=== PATIENT | female | born 1960 | race Caucasian/White ===

== ENCOUNTER 2017-02-18 11:25 | Inpatient (IN) | payer OTHER ==
[~2017-02-18] VITALS: Ht 152.4 cm; Wt 47.3 kg
--- NOTE | ~2017-02-18 | PR ---
[place], [place] PROGRESS NOTE NAME: JEFFERSON BARNETT UNIT #: [id number] ROOM: 503 DOCTOR: GILBERTO RUIZ MD BIRTHDATE: [birth year] DOS: 02/26/2017 PULMONARY PROGRESS NOTE SUBJECTIVE: The patient continued to show improvement in the respiratory symptoms with reduction of chest congestion, coughing, and shortness of breath. She has been ambulating in her room and denies any shortness of breath without any chest pain. OBJECTIVE: VITAL SIGNS: For the patient which was recorded show normal temperature, respiratory rate 20, heart rate 86, blood pressure 151/75. Pulse oxygen saturation on room air was 94% saturation recorded. HEENT: Examination shows no new change. NECK: Supple. CARDIOVASCULAR: S1, S2 audible. LUNGS: Noted without any wheezing or crackles at the present time. ABDOMEN: Soft, nontender. LABORATORY DATA: Urine for Legionella antigen and Strep antigen both noted as negative. CBC this morning, WBC count 12.2, hemoglobin and hematocrit normal, platelet count mildly elevated to 433,000. The CMP of the patient noted normal BUN and creatinine. Other electrolytes were noted grossly normal. IMPRESSION: 1. The patient who has been currently noted with acute hypoxic respiratory failure, which has been improving and resolving progressively. 2. Improving acute pneumonia with superimposed area of atelectasis of the lungs for the patient after bronchoscopy, the bronchial washing culture noted negative for any abnormal bacterial isolation. PLAN OF TREATMENT: The patient was encouraged to continue to ambulate. All other previous treatment to be continued as planned. Possible consideration for home discharge for the patient if assessed the same by the primary care physician. [place], [place] PROGRESS NOTE NAME: JEFFERSON BARNETT UNIT #: [id number] ROOM: 503 DOCTOR: GILBERTO RUIZ MD BIRTHDATE: [birth year] GILBERTO LANCASTER MD CM:PNTRANS [id number] GILBERTO ABRAMS MD 02/27/17 0713 interface
--- NOTE | ~2017-02-18 | ST ---
[place], [place] EXERCISE STRESS TEST REPORT NAME: JEFFERSON BARNETT LOCATED WITHIN [facility] #: [id number] UNIT #: [id number] ROOM: [facility] DOCTOR: SISSY VIDALES MD BIRTHDATE: [birth year] DOS: 02/23/2017 REFERRING PHYSICIAN: Dr. Hairston. INDICATION: Cardiomyopathy. DESCRIPTION: The patient underwent standard protocol Lexiscan stress EKG. Baseline EKG shows sinus tachycardia at a rate of 115 beats per minute with blood pressure at the baseline was 130/78. The patient's peak heart rate was 132, with a blood pressure of 122/64. The patient denied chest pain. The patient had no ischemic changes. The patient had no arrhythmias. SUMMARY OF FINDINGS: Unremarkable Lexiscan stress EKG. Please see separate report for perfusion scan results. SISSY VIDALES MD CM:STRESS:EXERCISE STRESS TEST REPORT [id number] SISSY VIDALES MD
--- NOTE | ~2017-02-18 | PR ---
[place], [place] PROGRESS NOTE [id number] UNIT #: [id number] ROOM: [facility] DOCTOR: KLEBER HERNANDEZ MD BIRTHDATE: [birth year] DOS: 02/25/2017 SUBJECTIVE: The patient is sitting up in chair. Denied any cardiac complaint. Reporting significant improvement in her shortness of breath. No chest pain. No symptomatic palpitation. No dizziness, no lightheadedness. OBJECTIVE: VITAL SIGNS: Blood pressure 135/67, heart rate 96, respiratory rate of 14. HEENT: Extraocular muscles intact. Pupils equal, round, reactive to light. NECK: Good upstroke, no bruit. HEART: S1, S2 with holosystolic murmur at left sternal border. LUNGS: Clear to auscultation. EXTREMITIES: Lower extremities, no significant edema. LABORATORY DATA: White count 13.1, hemoglobin 11.8. Potassium 4.8. GFR more than 60%. Albumin 2.9. ASSESSMENT AND PLAN: History of severe nonischemic cardiomyopathy, patient continued to be tachycardic with slightly elevated high blood pressure for that I will increase her Toprol to 50 mg 1 tablet p.o. b.i.d. We will continue with digoxin 0.25 mg once a day. As noted in my previous notes. We will arrange for the VEST prior to her discharge. The patient can be considered for discharge home in a.m. Increase activity with possible physical therapy. Follow up with Dr. Patel as an outpatient within 1-2 weeks. KLEBER HERNANDEZ MD CM:PNTRANS [id number] KLEBER HERNANDEZ MD 02/25/17 1431 interface
--- NOTE | ~2017-02-18 | PR ---
[place], [place] PROGRESS NOTE NAME: JEFFERSON BARNETT [facility] #: [id number] UNIT #: [id number] ROOM: [facility] DOCTOR: KLEBER HERNANDEZ MD BIRTHDATE: [birth year] DOS: 02/24/2017 SUBJECTIVE: The patient is sitting up in a chair and ____, appears to be doing well. She is reporting significant improvement in her symptoms. No current chest pain, chest pressure, heaviness, or tightness. No symptomatic palpitations. Occasional dizziness. OBJECTIVE: VITAL SIGNS: Blood pressure ____, heart rate 103, ____ of 97.4, respirations 20. NECK: Good upstroke, no bruit. HEART: S1, S2 with holosystolic murmur in the left upper sternal border. LUNGS: Decreased air movement, but no caroline wheezing or rales. ABDOMEN: Soft, nontender, present bowel sounds. LOWER EXTREMITIES: There is no significant edema ____. LABORATORY DATA: White count is currently 8.5, hemoglobin 10.5. Sed rate is 66. Potassium 3.8, glucose 124, ALT 47, AST is 93, albumin 2.7. ASSESSMENT AND PLAN: Initial presentation with shortness of breath with evidence of volume overload and subsequent echocardiogram confirmed severe LV dysfunction. The patient underwent stress test, which confirmed this and confirmed the nonischemic nature of this presentation. Currently, the patient is reporting significant improvement in her symptoms. My concern is her relative tachycardia, which could be due to possible dehydration. For that, I will hold Lasix for today. Digoxin 0.5 mg will be given today and initiated tomorrow at 0.25 mg. I will consider titrating ____ in the a.m. Future plans for a VEST most likely prior to discharge. Increase activity and prepare to get the patient out of the intensive care unit to a monitor bed. KLEBER HERNANDEZ MD CM:PNTRANS [id number] KLEBER HERNANDEZ MD 02/25/17 0204 interface
--- NOTE | ~2017-02-18 | PR ---
[place], [place] PROGRESS NOTE NAME: JEFFERSON BARNETT UNIT #: [id number] ROOM: [facility] DOCTOR: GILBERTO RUIZ MD BIRTHDATE: [birth year] DOS: 02/24/2017 PULMONARY PROGRESS NOTE SUBJECTIVE: She has been doing remarkably well from this patient's pulmonary standpoint. The patient denies symptoms of chest pain. Her medications for the patient has been adjusted for this patient for the cardiomyopathy. Stress test was completed yesterday of the patient on 02/23/2017, and was described unremarkable electrocardiographic portion of the stress test. The nuclear medicine scan for this patient described with left ventricular ejection fraction was noted at 50%, which previous echocardiogram was described as 20%. Probably normal perfusion with fixed anterolateral defects of the patient was described because of breast attenuation. The chest x-ray of the patient that was done 2-view this morning for the patient was reviewed for the patient shows continued improvement for the patient in infiltration of the lung was noted with reexpansion of the lung. IMPRESSION: 1. The patient with status post bronchoscopy of the patient removal of the large plugs and mucus impaction in the major airways of the patient with current lymphadenopathy. 2. Left ventricular ejection fraction was actually noted with 50% with the nuclear medicine scan, which would be considered more accurate for this patient than the echocardiogram. 3. Central bronchiectasis as well. 4. Acute hypoxic respiratory failure, resolving. PLAN OF TREATMENT: Discontinuation of the Smith catheter for this patient at this time. Ambulation as tolerated for the patient to telemetry floor. Culture results of the bronchial washing noted negative. Culture monitor chest x-ray closely. Upon discharge of the patient, further assessment of lymphadenopathy and others to be continued. Continue monitoring workup of bronchiectasis as well and other pulmonary infiltration assessment, which has been ordered with the lab testing. [place], [place] PROGRESS NOTE NAME: JEFFERSON BARNETT UNIT #: [id number] ROOM: [facility] DOCTOR: GILBERTO RUIZ MD BIRTHDATE: [birth year] GILBERTO LANCASTER MD CM:PNTRANS [id number] GILBERTO ABRAMS MD 02/25/17 1142 interface
--- NOTE | ~2017-02-18 | PR ---
[place], [place] PROGRESS NOTE NAME: JEFFERSON BARNETT [facility] #: [id number] UNIT #: [id number] ROOM: 503 DOCTOR: MELO BOGGS MD BIRTHDATE: [birth year] DOS: 02/26/2017 CARDIOLOGY PROGRESS NOTE SUBJECTIVE: The patient was seen at her bedside today, 02/26/2017 for a followup of her newly documented cardiomyopathy. She is a 56-year-old woman who presented to the hospital 02/18/2017 with chest pain, fevers and a productive cough. An echocardiogram read by Dr. Patel on 02/22/2017 showed that the left ventricle was normal in size, but globally hypokinetic with normal wall thickness. Ejection fraction was 20% and there was Doppler evidence for stage 3 diastolic dysfunction. The mitral valve showed moderate mitral insufficiency. The tricuspid valve was normal with trivial tricuspid insufficiency. At least moderate aortic insufficiency was also present. The patient did undergo a pharmacologic stress test on 02/23/2017 which showed an anterior perfusion defect that was felt to be due to soft tissue attenuation. There was no evidence for inducible or reversible ischemia. The patient was felt to have a dilated nonischemic cardiomyopathy and was placed on metoprolol, digoxin, spironolactone, and losartan as part of her guideline directed medical therapy. Currently, she is on 25 mg of losartan daily along with 50 mg of metoprolol twice a day. The patient feels well. She believes she has diuresed considerably. She is no longer swollen or dyspneic. She is anxious to go home. PHYSICAL EXAMINATION: GENERAL: She is a slender white female who is awake, alert and oriented. VITAL SIGNS: Pulse is 77 and regular, blood pressure is 155/52. She is afebrile. HEENT: Normocephalic, atraumatic. Extraocular muscles are intact. Sclerae are clear. Pupils are equal, round and react to light. The oral mucosa is moist. Tongue is midline. NECK: Supple. She has no jugular distention. Carotids are full without bruits. She has no neck or supraclavicular masses and no thyromegaly. LUNGS: Respirations are unlabored. Her chest is clear to auscultation and percussion. She has no presacral edema or chest wall tenderness. HEART: Has a regular rhythm. She has a fourth heart sound, but no third heart sound. The PMI is not displaced. She has no precordial heave, lift or thrill. ABDOMEN: Soft and normally active without masses, organomegaly or bruits. EXTREMITIES: Showed no edema. Peripheral pulses are easily palpated bilaterally. She presumably does have a dilated nonischemic cardiomyopathy and is being treated medically. Since her heart rate and blood pressure remain elevated, I will increase her metoprolol from 50 mg twice a day to 100 mg twice a day utilizing the succinate version. We will continue 25 mg of losartan for the present. I do not see any good indication for digoxin, so that will be stopped. She will continue her spironolactone as prescribed. We will plan on seeing her back in the office in a few weeks to continue to up titrate her medications. We are delaying her discharge until her LifeVest can be fitted and provided for discharge. We thank the hospitalist physicians for asking our advice regarding her care. [place], [place] PROGRESS NOTE NAME: AYE BARNETTAGUILAR Thomas [facility] [id number] UNIT #: [id number] ROOM: 503 DOCTOR: MELO BOGGS MD BIRTHDATE: [birth year] MELO BOGGS MD CM:PNTRANS [id number] MELO BOGGS MD 02/27/17215 interface
--- NOTE | ~2017-02-18 | PR ---
[place], [place] PROGRESS NOTE NAME: JEFFERSON BARNETT [facility] #: [id number] UNIT #: [id number] ROOM: [facility] DOCTOR: ANISHA ABRAMS MD,GILBERTO BIRTHDATE: [birth year] DOS: 02/23/2017 PULMONARY PROGRESS NOTE SUBJECTIVE: She had a bronchoscopy done yesterday with removal of large plugs of the mucus. She denies symptoms of chest pain, abdominal pain. She was planned for cardiac stress testing, which was ordered by the Cardiology Services to be done today. The echocardiogram for the patient noted with global hypokinesia with a left ventricular ejection fraction described as about 20% ejection fraction. The coughing has been noted certainly decreased. Shortness of breath was also noted improving. OBJECTIVE: VITAL SIGNS: For the patient, which have been recorded shows normal temperature, respiratory rate 20, heart rate of 113-120, blood pressure 143/83-144/82. Pulse oxygen saturation on 2 liters nasal cannula 97% saturation. HEENT: Examination shows head was atraumatic. Eyes nonicterus. NECK: Supple. CARDIOVASCULAR: S1, S2 audible. LUNGS: Without any wheeze or crackles at the present time. Breaths are noted decreased in the lower portion of the lungs. ABDOMEN: Soft, nontender. LABORATORY DATA: Echocardiogram for this patient was noted with moderate mitral valve regurgitation was noted. Left ventricular ejection fraction was described as 20% with global hypokinesia. Moderate aortic regurgitation for the patient was described as well. IMPRESSION: 1. The patient with valvular heart disease. The patient with aortic and mitral regurgitation, at least moderate severity with severe cardiomyopathy. The patient's left ventricular ejection fraction 20%. 2. The patient with status post bronchoscopy for removal of large plugs of the mucus of the patient with area of atelectasis. 3. Acute hypoxic respiratory failure as well. 4. Central bronchiectasis as well. 5. Lymphadenopathy in the mediastinum. PLAN OF TREATMENT: Continuation of the current plan and management as in progress. Monitor results of the bronchial washing of the patient to make any further changes in treatment accordingly. Preliminary culture of bronchial washings was noted as normal riky at this time. The Gram stain of the bronchial washings yesterday was noted as many white blood cells, few epithelial cells, rare gram-positive cocci in pairs. The ESR was noted at 66 as well. Improve the nutritional status for the patient as well. Usual care. All other supportive plan and management and plan of care. [place], [place] PROGRESS NOTE NAME: JEFFERSON BARNETT UNIT #: [id number] ROOM: [facility] DOCTOR: ANISHA ABRAMS MD,GILBERTO BIRTHDATE: [birth year] GILBERTO LANCASTER MD CM:BRIAN [id number] GILBERTO ABRAMS MD 02/24/17 0233 interface
--- NOTE | ~2017-02-18 | CON ---
[place], [place] REPORT OF CONSULTATION NAME: JEFFERSON BARNETT [facility] #: [id number] UNIT #: [id number] ROOM: [facility] DOCTOR: GILBERTO RUIZ MD BIRTHDATE: [birth year] DOS: 02/22/2017 PULMONARY CONSULTATION, EVALUATION, AND MANAGEMENT REQUESTING PHYSICIAN: The consultation was requested by the Hospitalist Services. HISTORY OF PRESENT ILLNESS: This is a 56-year-old white female, who has been admitted under the care of the Hospitalist Services for the patient on 02/18/2017. The patient presented to the Emergency Room from home as the patient reported symptoms of having increased coughing with chest congestion with intermittent sputum expectoration. She was also noted with symptoms of shortness of breath and also complains of chills. She does complain of symptoms of wheezing, which was noted to be severe at home. She has been admitted to the hospital for further medical management for this patient for possibility of acute pneumonia with sepsis for the patient in exacerbation of COPD. The patient developed significant severe respiratory distress yesterday for this patient with tachycardia and tachypnea. She had a CTA of the chest for this patient done that does not show evidence of pulmonary embolism, some other abnormalities were described on the CT scan of the chest. The patient denied symptoms of hemoptysis. Denied any ongoing acute chest pain. She has been made n.p.o. past midnight and bronchoscopy to be done today. REVIEW OF SYSTEMS: CONSTITUTIONAL SYMPTOMS: Fatigue and tiredness noted with chills without any fever from home. EYES: Denies any burning, redness, or tenderness. EARS, NOSE, AND THROAT SYMPTOMS: No sore throat, hoarseness, otalgia, postnasal drainage. CARDIOVASCULAR SYMPTOMS: Denies anginal pain, edema of the lower extremities, or palpitations. GASTROINTESTINAL SYMPTOMS: Denies dysphagia, nausea, vomiting, diarrhea, abdominal pain, hematemesis, melena, or hematochezia. SKIN: Denies lesions or rashes. GENITOURINARY SYMPTOMS: Denies dysuria, suprapubic pain, or hematuria. MUSCULOSKELETAL SYMPTOMS: Denies any acute joint pain, redness, or tenderness. CENTRAL NERVOUS SYSTEM: Denies dizziness, diplopia, syncopal episodes, or dizziness. Remaining systems were reviewed with the patient, they were noted all negative. PAST MEDICAL HISTORY: 1. This patient has not been diagnosed with COPD in the past. 2. History of chronic nicotine dependence up to 2 packs of cigarettes per day for several years. 3. History of seasonal allergies with allergic rhinitis. 4. Possible seizures. SOCIAL HISTORY: The patient stated that she is , has 1 daughter at home. Smoking was started as a teenager up to 2 packs of cigarettes per day with short-term tobacco cessation and resuming tobacco use again recently. Denies [place], [place] REPORT OF CONSULTATION NAME: JEFFERSON BARNETT UNIT #: [id number] ROOM: [facility] DOCTOR: ANISHA ABRAMS MD,GILBERTO BIRTHDATE: [birth year] any history of chronic alcohol dependence. Denies history of illicit drug use. Denies any occupational-related pulmonary exposure history. FAMILY HISTORY: The patient's father is , age unknown, from complication related to the heart problems. The mother also at age 6060 years old from complication related to coronary artery disease and with history of diabetes mellitus. HOME MEDICATIONS: Noted multivitamin for the patient and vitamin D. DRUG ALLERGIES: Noted allergies to: 1. IBUPROFEN. 2. PENICILLINS. PHYSICAL EXAMINATION: GENERAL: This is a 56-year-old female, who has been noted currently without any acute distress, appeared to be with somewhat muscle mass loss. VITAL SIGNS: The height for the patient recorded on admission was 5 feet, weight of 104 pounds, BMI of 20.3. The vital signs for the patient which have been recorded shows the temperature of the patient noted as normal for the patient since admission. Respiratory rate of the patient recorded as 18-14. Heart rate of 123 to 110 for the patient's sinus tachycardia. The blood pressure is 168/89 to 158/95. HEENT: Loss of muscles of mastication and temporal muscle wasting. NECK: Supple. CARDIOVASCULAR: S1, S2 audible. LUNGS: Noted with severely reduced breath sounds noted in the lungs bilaterally for the patient without any wheezing or crackles. ABDOMEN: Soft, nontender. EXTREMITIES: Show no edema, clubbing, or cyanosis. SKIN: For the patient does not show any lesions or rashes. MUSCULOSKELETAL: No deformities. CENTRAL NERVOUS SYSTEM: Cranial nerves 2 through 12 intact without any focal deficits. LABORATORY DATA: Lactic acid on admission was noted as 4.5, which was progressively reduced for the patient later on the same day on 02/18/2017, was noted as 2.8. The CBC of the patient on 02/18/2017 for this patient showed a WBC count of 16.5, hemoglobin 11.8, hematocrit 36.1, platelet count was noted as normal, 96% segments noted with differentials. The CMP of the patient on 02/18/2017 for this patient was noted with a creatinine of 1.1, BUN of 8. The liver function tests of the patient was noted with albumin of 2.7. Alkaline phosphatase mildly elevated at 279. The CBC of the patient that was done this morning shows hemoglobin of 10.5, hematocrit of 30.9, WBC count was normal. Platelet count was noted as normal at 314,000. CMP of the patient that was done this morning shows normal BUN and creatinine. PT and PTT for this patient that were done yesterday were noted as normal. Review of the radiology data for this patient, personal review was performed. The chest x-ray of the patient that was done for this patient was in 2006, shows [place], [place] REPORT OF CONSULTATION NAME: JEFFERSON BARNETT UNIT #: [id number] ROOM: [facility] DOCTOR[facility] [birth year] changes of COPD, hyperinflation. The chest x-ray of the patient that was done on 02/18/2017 for this patient shows some blunting of the left costophrenic angle with changes of COPD and emphysema were noted. CTA of the chest of the patient on 02/21/2017 for the patient was reviewed, shows central bronchiectasis. The patient was noted with volume loss in the patient's right middle lung for this patient as well as in the left lingula partially. Significant pleural thickening for this patient was noted with possibility of some loculated fluid formation in the left upper lung. Small left pleural fluid for this patient was also seen. Interstitial edema was also noted. Changes of centrilobular emphysema was also present. Significant lymphadenopathy was noted in the mediastinum bilaterally including in the left side of the lung. IMPRESSION: For the patient who has been currently admitted to the hospital, the patient being treated for this patient were: 1. Acute exacerbation of chronic obstructive pulmonary disease, has an acute bronchitis. 2. Acute severe hypoxic respiratory failure of the patient was also noted. 3. Rule out endobronchial obstructive lesion versus mucus impaction, especially in the right middle lobe. 4. Central bronchiectasis of the patient with possible consideration of allergic bronchopulmonary aspergillosis for this patient, atypical mycobacterial infection and others would be considered. 5. Pleural thickening for this patient would be noted of unknown significance at this time. 6. Definitely consideration of malignancy until resolution of all of the acute symptoms noted with current lymphadenopathy. Usual care. 7. Tobacco dependence for this patient was also noted. 8. Protein-calorie malnutrition status in the patient was also suggested. PLAN OF TREATMENT: Proceed with bronchoscopy as planned. Continue antibiotics, bronchodilators, oxygen supplementation, corticosteroids. Ordered the TB Gold test as well. Close monitoring of current radiologic abnormality will be continued. Based on the bronchoscopy, any radiation changes in the treatment if necessary will be ordered accordingly. Supportive therapy, other plan of management and care. Usual treatment. Continue use of the BiPAP for this patient for the medical management of acute hypoxic respiratory failure as well. Further treatment changes will be done based on the progression of illness. The prealbumin level for the patient was also ordered for the patient to determine the nutritional status of this patient. Thanks for allowing me to participate in the care of this patient. [place], [place] REPORT OF CONSULTATION NAME: JEFFERSON BARNETT [place] UNIT #: [id number] ROOM: [facility] DOCTOR: GILBERTO RUIZ MD BIRTHDATE: [birth year] GILBERTO LANCASTER MD CM:CONSTR:REPORT OF CONSULTATION 1216 02/23/17 0238 interface
--- NOTE | ~2017-02-18 | PROC NOTE ---
[place], [place] PROCEDURE NOTE NAME: JEFFERSON BARNETT [facility] #: [id number] UNIT #: [id number] ROOM: [facility] DOCTOR: ANISHA ABRAMS MD,GILBERTO BIRTHDATE: [birth year] DOS: 02/22/2017 PREOPERATIVE DIAGNOSES: The patient with atelectasis right middle lobe and other abnormal findings with cough for this patient on the CT scan of the chest. 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 Impaction of the mucous plugs were noted in endobronchial tree as well. The endobronchial obstructive lesions were noted. PROCEDURE DESCRIPTION: Informed consent obtained for the patient. The patient brought to the OR and placed in supine position. Conscious sedation administered by the Anesthesia Department. After achieving appropriate sedation, airway introduced into the mouth. Bronchoscope advanced to the airway into laryngeal area. Epiglottis and vocal cords were seen. Vocal cords were moving symmetrically with movements. Bronchoscope advanced to the vocal cords into the tracheal lumen. Tracheal lumen noted with large amount of thick mucoid secretion with some purulent secretions suctioned out to the tamar level. Right main stem bronchus, right middle lobe bronchus was completely occluded with thick plugs of the mucus. The patient with some purulent secretions suctioned out with the help of normal saline wash. All the endobronchial tree of this patient was cleared up with the help of normal saline wash without any difficulty. There were no endobronchial obstructive lesions noted. Left lingular lower lobe opening and the left upper lobe was also noted with small infection in the mucous plugs. BAL specimen was obtained from the right middle lobe as well as the left upper lobe for this patient successfully. This was noted the most diseased portion rather on the CT scan of the chest. Procedure was well tolerated by the patient without any complications. Postoperative findings were discussed with the patient's primary care attending. The findings will be discussed with the patient once the patient recovered the effects of acute sedation. GILBERTO LANCASTER MD CM:PROCNOTE:PROCEDURE NOTE [id number] GILBERTO ABRAMS MD
--- NOTE | ~2017-02-18 | PR ---
[place], [place] PROGRESS NOTE [id number] #: [id number] ROOM: 503 DOCTOR: ANISHA ABRAMS MD,GILBERTO BIRTHDATE: [birth year] DOS: 02/25/2017 PULMONARY PROGRESS NOTE SUBJECTIVE: The patient has been noted without any acute new respiratory complaints, comfortably sitting on the chair this morning at time of the assessment. The Smith catheter was removed yesterday. There were no symptoms of chest pain or any abdominal pain. OBJECTIVE: VITAL SIGNS: Normal temperature, respiratory rate 20, heart rate of 109-96, blood pressure is 135/67-170/86. Intake 970, output 2800 mL, negative 1800 mL. Pulse oxygen saturation on room air 93% saturation recorded. HEENT: Examination showed no new change. NECK: Supple. CARDIOVASCULAR SYSTEM: S1, S2 audible. LUNGS: Noted without any wheezing or crackles at this time. ABDOMEN: Soft, nontender. LABORATORY DATA: CBC of the patient on 02/25, WBC count 13.1, hemoglobin 11.8, hematocrit 36.6, platelet count was normal. CMP this morning, normal BUN and creatinine. IMPRESSION: The patient with progressive gradual resolution of the respiratory symptoms for the patient was noted with continued improvement in acute hypoxic respiratory failure as well as improved pneumonia for the patient and impaction of the mucus plug for the patient for the major airways. PLAN OF TREATMENT: No changes in plan and management, ambulation, bronchodilators, oxygen supplementation, other treatment as in progress. No further treatment immediately needed in the medical management. GILBERTO LANCASTER MD CM:PNTRANS [id number] GILBERTO ABRAMS MD 02/25/[id number] interface
[2017-02-18 11:33] VITALS: BP 125/62
[2017-02-18] MEDS ORDERED: VITAMIN D5000 I3 PO (11:34)
[2017-02-18] MEDS ORDERED: MULTIPLE VITAMI1 TA3 PO (11:34)
[2017-02-18 11:56] LABS: HEMATOCRIT 36.1 % (37.0-47.0); HEMOGLOBIN 11.8 g/dl (12.0-16.0); MEAN CELL VOLUME 90.7 fl (81.0-99.0); MEAN CORPUSCULAR HGB 29.6 pg (27.0-31.0); MEAN CORPUSCULAR HGB CONC 32.7 g/dl (33.0-37.0); MEAN PLATELET VOLUME 9.9 fl (9.6-12.3); PLATELET COUNT AUTOMATED 286 10*3/uL (130-400); RED BLOOD COUNT 3.98 10*6/uL (4.10-5.10); RED CELL DISTRI WIDTH 13.6 % (0-14.5); WHITE BLOOD COUNT 16.5 10*3/uL (4.8-10.8)
[2017-02-18 12:12] LABS: ALBUMIN 2.7 gm/dl (3.1-4.5); ALKALINE PHOSPHATASE 278 U/L (45-117); BILIRUBIN, TOTAL 0.8 mg/dl (0.2-1.0); BUN 8 mg/dl (7-24); CARBON DIOXIDE 25 mmol/L (21-32); CHLORIDE 98 mmol/L (98-107); EST GLOM FILT AFRICAN AMERICAN > 60 ml/min; GLUCOSE 112 mg/dL (65-99); POTASSIUM 2.6 mmol/L (3.5-5.1); SGOT/AST 119 IU/L (3-35); SGPT/ALT 56 U/L (12-78); SODIUM 138 mmol/L (136-145); TOTAL PROTEIN 7.5 gm/dL (6.4-8.2); TROPONIN I 0.019 ng/ml (<0.045)
[2017-02-18 12:22] LABS: BASOPHIL # 0.2 10*3/uL (0-0.1); BASOPHILS 1 % (0-1); EOSINOPHIL # 0.2 10*3/uL (0-0.4); EOSINOPHILS 1 % (1-4); LYMPHOCYTE # 0.2 10*3/uL (1.3-4.4); METAMYELOCYTES 1 % (0-0); NEUTROPHIL # 15.8 10*3/uL (2.3-7.9); NEUTROPHILS 96 % (47-73); PLATELET SUFFICIENCY NORMAL (NORMAL); TOTAL CELLS COUNTED 100 #CELLS; VACUOLATION OF NEUTROPHILS SLIGHT
[2017-02-18 13:42] LABS: BILIRUBIN 1+ (NEGATIVE); BLOOD 2+ (NEGATIVE); CLARITY CLOUDY (CLEAR); COLOR YELLOW (YELLOW); GLUCOSE NEGATIVE (NEGATIVE); KETONE TRACE (NEGATIVE); LEUKO ESTERASE 1+ (NEGATIVE); NITRITE NEGATIVE (NEGATIVE); PROTEIN 2+ (NEGATIVE); SPECIFIC GRAVITY 1.025 (1.005-1.030)
[2017-02-18 13:50] LABS: BACTERIA 3+; EPITHELIAL CELLS 0-2; URINE REFLEX COMMENT YES (NO); WBC 41-50 wbc/hpf (0-5)
[2017-02-18 14:50] VITALS: BP 121/67
[2017-02-18 15:29] VITALS: BP 125/67
[2017-02-18 16:00] VITALS: BP 121/67
[2017-02-18 16:34] LABS: LA>2 REFLEX 2 HR DRAW NOW
[2017-02-18 17:12] LABS: LA>2 RFLX FOLLOW UP AT 2 HRS 2.8 mmol/L (0.4-2.0)
[2017-02-18 19:02] LABS: LA>2 REFLEX 4 HR DRAW NOW
[2017-02-18 20:06] VITALS: BP 129/60
[2017-02-18 23:53] VITALS: BP 130/64
[2017-02-19 06:34] LABS: MEAN CORPUSCULAR HGB 30.1 pg (27.0-31.0); MEAN CORPUSCULAR HGB CONC 33.1 g/dl (33.0-37.0); MEAN PLATELET VOLUME 10.4 fl (9.6-12.3); PLATELET COUNT AUTOMATED 222 10*3/uL (130-400); RED BLOOD COUNT 2.99 10*6/uL (4.10-5.10); RED CELL DISTRI WIDTH 14.3 % (0-14.5); WHITE BLOOD COUNT 16.1 10*3/uL (4.8-10.8)
[2017-02-19 06:48] LABS: HEMATOCRIT 27.2 % (37.0-47.0)
[2017-02-19 07:09] LABS: CHLORIDE 109 mmol/L (98-107); LYMPHOCYTE # 0.3 10*3/uL (1.3-4.4); NEUTROPHIL # 15.8 10*3/uL (2.3-7.9); NEUTROPHILS 98 % (47-73); PLATELET SUFFICIENCY NORMAL (NORMAL); POTASSIUM 3.5 mmol/L (3.5-5.1); SODIUM 142 mmol/L (136-145); TOTAL CELLS COUNTED 100 #CELLS
[2017-02-19 07:23] LABS: ALBUMIN 2.3 gm/dl (3.1-4.5); ALKALINE PHOSPHATASE 143 U/L (45-117); BILIRUBIN, TOTAL 0.1 mg/dl (0.2-1.0); BUN 9 mg/dl (7-24); CARBON DIOXIDE 22 mmol/L (21-32); CHOLESTEROL 101 mg/dL (<200); EST GLOM FILT AFRICAN AMERICAN > 60 ml/min; FREE T4 1.49 ng/dl (0.76-1.46); GLUCOSE 172 mg/dL (65-99); HDL CHOLESTEROL 17 mg/dl (40-60); LDL CHOLESTEROL 55 mg/dL (9-159); SGOT/AST 64 IU/L (3-35); SGPT/ALT 48 U/L (12-78); THYROID STIM HORMONE (HS) 0.803 uIU/ml (0.358-4.75); TOTAL PROTEIN 6.5 gm/dL (6.4-8.2); TRIGLYCERIDES 143 mg/dl (<150); VLDL CHOLESTEROL 29 mg/dL (6-40)
[2017-02-19 08:00] VITALS: BP 114/62
[2017-02-19 08:50] LABS: HEMOGLOBIN A1c 5.7 % (4.8-5.6)
[2017-02-19 10:48] LABS: FOLIC ACID 16.25 ng/mL (>5.38)
[2017-02-19 16:00] VITALS: BP 142/70
[2017-02-20] VITALS: BP 140/69
[2017-02-20 08:00] VITALS: BP 127/85
[2017-02-20 08:48] LABS: HEMATOCRIT 29.5 % (37.0-47.0); HEMOGLOBIN 9.8 g/dl (12.0-16.0); MEAN CELL VOLUME 89.9 fl (81.0-99.0); MEAN CORPUSCULAR HGB 29.9 pg (27.0-31.0); MEAN CORPUSCULAR HGB CONC 33.2 g/dl (33.0-37.0); MEAN PLATELET VOLUME 10.1 fl (9.6-12.3); RED BLOOD COUNT 3.28 10*6/uL (4.10-5.10); RED CELL DISTRI WIDTH 14.6 % (0-14.5); WHITE BLOOD COUNT 13.6 10*3/uL (4.8-10.8)
[2017-02-20 08:50] LABS: PLATELET COUNT AUTOMATED 313 10*3/uL (130-400)
[2017-02-20 09:04] LABS: ALBUMIN 2.4 gm/dl (3.1-4.5); ALKALINE PHOSPHATASE 148 U/L (45-117); BILIRUBIN, TOTAL 0.1 mg/dl (0.2-1.0); BUN 9 mg/dl (7-24); CARBON DIOXIDE 23 mmol/L (21-32); CHLORIDE 110 mmol/L (98-107); EST GLOM FILT AFRICAN AMERICAN > 60 ml/min; GLUCOSE 147 mg/dL (65-99); POTASSIUM 3.2 mmol/L (3.5-5.1); SGOT/AST 46 IU/L (3-35); SGPT/ALT 63 U/L (12-78); SODIUM 139 mmol/L (136-145); TOTAL PROTEIN 6.6 gm/dL (6.4-8.2)
[2017-02-20 09:10] LABS: LYMPHOCYTE # 1.2 10*3/uL (1.3-4.4); METAMYELOCYTES 1 % (0-0); MONOCYTE # 0.3 10*3/uL (0.1-1.0); MYELOCYTES 1 % (0-0); NEUTROPHIL # 11.8 10*3/uL (2.3-7.9); NEUTROPHILS 87 % (47-73); PLATELET SUFFICIENCY NORMAL (NORMAL); TOTAL CELLS COUNTED 100 #CELLS
[2017-02-20 12:00] VITALS: BP 161/80
[2017-02-20 16:00] VITALS: BP 137/82
[2017-02-20 20:00] VITALS: BP 150/81
[2017-02-20 23:57] VITALS: BP 138/72
[2017-02-21 06:13] LABS: HEMATOCRIT 32.4 % (37.0-47.0); HEMOGLOBIN 10.6 g/dl (12.0-16.0); MEAN CELL VOLUME 91.8 fl (81.0-99.0); MEAN CORPUSCULAR HGB CONC 32.7 g/dl (33.0-37.0); MEAN PLATELET VOLUME 9.9 fl (9.6-12.3); NUCLEATED RED BLOOD CELL 0.2 % (0.0-0.0); PLATELET COUNT AUTOMATED 387 10*3/uL (130-400); RED BLOOD COUNT 3.53 10*6/uL (4.10-5.10); RED CELL DISTRI WIDTH 15.5 % (0-14.5); WHITE BLOOD COUNT 15.2 10*3/uL (4.8-10.8)
[2017-02-21 06:39] LABS: BUN 14 mg/dl (7-24); CARBON DIOXIDE 24 mmol/L (21-32); CHLORIDE 110 mmol/L (98-107); EST GLOM FILT AFRICAN AMERICAN > 60 ml/min; GLUCOSE 137 mg/dL (65-99)
[2017-02-21 06:52] LABS: LYMPHOCYTE # 0.5 10*3/uL (1.3-4.4); METAMYELOCYTES 4 % (0-0); MONOCYTE # 0.3 10*3/uL (0.1-1.0); MYELOCYTES 2 % (0-0); NEUTROPHIL # 13.5 10*3/uL (2.3-7.9); NEUTROPHILS 89 % (47-73); PLATELET SUFFICIENCY NORMAL (NORMAL); TOTAL CELLS COUNTED 100 #CELLS
[2017-02-21 07:02] LABS: SODIUM 141 mmol/L (136-145)
[2017-02-21 07:04] LABS: POTASSIUM 4.6 mmol/L (3.5-5.1)
[2017-02-21 08:00] VITALS: BP 150/94
[2017-02-21 12:00] VITALS: BP 136/78
[2017-02-21 12:27] LABS: HEMATOCRIT 35.1 % (37.0-47.0); HEMOGLOBIN 11.4 g/dl (12.0-16.0); MEAN CELL VOLUME 90.2 fl (81.0-99.0); MEAN CORPUSCULAR HGB 29.3 pg (27.0-31.0); MEAN CORPUSCULAR HGB CONC 32.5 g/dl (33.0-37.0); MEAN PLATELET VOLUME 10.3 fl (9.6-12.3); NUCLEATED RED BLOOD CELL 0.1 10*3/uL (0.0-0.0); NUCLEATED RED BLOOD CELL 0.3 % (0.0-0.0); PLATELET COUNT AUTOMATED 514 10*3/uL (130-400); RED BLOOD COUNT 3.89 10*6/uL (4.10-5.10); RED CELL DISTRI WIDTH 15.6 % (0-14.5); WHITE BLOOD COUNT 24.7 10*3/uL (4.8-10.8)
[2017-02-21 12:28] LABS: ABG BASE EXCESS -4.9 mmol/L (-2.0-2.0); ABG CO2 CONTENT 20.4 mmol/L (23-27); ABG HCO3 19.3 mmol/l (22-26); ABG TEMPERATURE 97.5 F (98.0-99.0); ARTERIAL BLOOD GAS PH 7.37 (7.35-7.45); ARTERIAL BLOOD GAS PO2 67.5 mmHg (80-90)
[2017-02-21 12:34] LABS: ALBUMIN 2.7 gm/dl (3.1-4.5); ALKALINE PHOSPHATASE 132 U/L (45-117); BILIRUBIN, TOTAL 0.2 mg/dl (0.2-1.0); BUN 15 mg/dl (7-24); CARBON DIOXIDE 20 mmol/L (21-32); CHLORIDE 112 mmol/L (98-107); EST GLOM FILT AFRICAN AMERICAN > 60 ml/min; GLUCOSE 162 mg/dL (65-99); POTASSIUM 4.5 mmol/L (3.5-5.1); SGOT/AST 58 IU/L (3-35); SGPT/ALT 85 U/L (12-78); SODIUM 144 mmol/L (136-145)
[2017-02-21 12:44] LABS: LYMPHOCYTE # 1.2 10*3/uL (1.3-4.4); METAMYELOCYTES 5 % (0-0); MONOCYTE # 1.2 10*3/uL (0.1-1.0); MYELOCYTES 5 % (0-0); NEUTROPHIL # 19.8 10*3/uL (2.3-7.9); NEUTROPHILS 80 % (47-73); TOTAL CELLS COUNTED 100 #CELLS
[2017-02-21 12:45] LABS: PLATELET SUFFICIENCY HIGH (NORMAL); POLYCHROMASIA SLIGHT
[2017-02-21 15:30] VITALS: BP 174/103
[2017-02-21 16:30] VITALS: BP 154/90
[2017-02-21 17:32] LABS: INTERNATIONAL NORM RATIO 1.1 (2.0-3.5); PROTHROMBIN TIME 11.8 SECONDS (9.0-12.4)
[2017-02-21 18:00] LABS: COL/EPI 83 SECONDS (86-157)
[2017-02-21 20:00] VITALS: BP 152/90
[2017-02-22] VITALS (8 sets, daily range): BP systolic 129–176; BP diastolic 66–95
[2017-02-22 07:21] LABS: HEMATOCRIT 31.9 % (37.0-47.0); HEMOGLOBIN 10.5 g/dl (12.0-16.0); MEAN CELL VOLUME 90.1 fl (81.0-99.0); MEAN CORPUSCULAR HGB 29.7 pg (27.0-31.0); MEAN CORPUSCULAR HGB CONC 32.9 g/dl (33.0-37.0); MEAN PLATELET VOLUME 10.7 fl (9.6-12.3); NUCLEATED RED BLOOD CELL 0.1 10*3/uL (0.0-0.0); NUCLEATED RED BLOOD CELL 1.2 % (0.0-0.0); RED BLOOD COUNT 3.54 10*6/uL (4.10-5.10); RED CELL DISTRI WIDTH 15.5 % (0-14.5); WHITE BLOOD COUNT 8.5 10*3/uL (4.8-10.8)
[2017-02-22 07:24] LABS: PLATELET COUNT AUTOMATED 314 10*3/uL (130-400)
[2017-02-22 07:28] LABS: ALBUMIN 2.7 gm/dl (3.1-4.5); ALKALINE PHOSPHATASE 113 U/L (45-117); BILIRUBIN, TOTAL 0.2 mg/dl (0.2-1.0); BUN 20 mg/dl (7-24); CARBON DIOXIDE 29 mmol/L (21-32); CHLORIDE 107 mmol/L (98-107); EST GLOM FILT AFRICAN AMERICAN > 60 ml/min; GLUCOSE 124 mg/dL (65-99); POTASSIUM 3.8 mmol/L (3.5-5.1); SGOT/AST 47 IU/L (3-35); SGPT/ALT 93 U/L (12-78); SODIUM 146 mmol/L (136-145); TOTAL PROTEIN 6.5 gm/dL (6.4-8.2)
[2017-02-22 07:45] LABS: LYMPHOCYTE # 0.4 10*3/uL (1.3-4.4); MONOCYTE # 0.7 10*3/uL (0.1-1.0); MYELOCYTES 3 % (0-0); NEUTROPHIL # 7.1 10*3/uL (2.3-7.9); NEUTROPHILS 84 % (47-73); PLATELET SUFFICIENCY NORMAL (NORMAL); TOTAL CELLS COUNTED 100 #CELLS
[2017-02-23] VITALS: BP 141/85
[2017-02-23 04:00] VITALS: BP 144/82
[2017-02-23 05:41] LABS: ALBUMIN 2.7 gm/dl (3.1-4.5); ALKALINE PHOSPHATASE 98 U/L (45-117); BILIRUBIN, TOTAL 0.3 mg/dl (0.2-1.0); BUN 24 mg/dl (7-24); CARBON DIOXIDE 31 mmol/L (21-32); CHLORIDE 101 mmol/L (98-107); EST GLOM FILT AFRICAN AMERICAN > 60 ml/min; GLUCOSE 140 mg/dL (65-99); POTASSIUM 4.4 mmol/L (3.5-5.1); SGOT/AST 40 IU/L (3-35); SGPT/ALT 105 U/L (12-78); SODIUM 139 mmol/L (136-145); TOTAL PROTEIN 6.1 gm/dL (6.4-8.2)
[2017-02-23 05:42] LABS: PREALBUMIN 33 mg/dl (20-40)
[2017-02-23 06:07] LABS: HEMATOCRIT 31.8 % (37.0-47.0); HEMOGLOBIN 10.3 g/dl (12.0-16.0); MEAN CELL VOLUME 90.9 fl (81.0-99.0); MEAN CORPUSCULAR HGB 29.4 pg (27.0-31.0); MEAN CORPUSCULAR HGB CONC 32.4 g/dl (33.0-37.0); MEAN PLATELET VOLUME 10.2 fl (9.6-12.3); NUCLEATED RED BLOOD CELL 0.1 10*3/uL (0.0-0.0); NUCLEATED RED BLOOD CELL 0.5 % (0.0-0.0); PLATELET COUNT AUTOMATED 332 10*3/uL (130-400); RED CELL DISTRI WIDTH 15.3 % (0-14.5)
[2017-02-23 06:44] LABS: HYPOCHROMIA SLIGHT; METAMYELOCYTES 3 % (0-0); MONOCYTE # 0.3 10*3/uL (0.1-1.0); MYELOCYTES 4 % (0-0); NEUTROPHILS 90 % (47-73); PLATELET SUFFICIENCY NORMAL (NORMAL); POLYCHROMASIA SLIGHT; TOTAL CELLS COUNTED 100 #CELLS
[2017-02-23 07:08] LABS: HEPATITIS C VIRUS ANTIBODY <0.1 s/co (0.0-0.9)
[2017-02-23 08:00] VITALS: BP 143/83
[2017-02-23 15:09] LABS: ACID FAST SPEC PROCESSING Concentration (.)
[2017-02-23 16:00] VITALS: BP 146/78
[2017-02-23 20:00] VITALS: BP 108/77
[2017-02-24] VITALS: BP 143/80
[2017-02-24 04:00] VITALS: BP 153/83
[2017-02-24 05:55] LABS: HEMATOCRIT 35.6 % (37.0-47.0); HEMOGLOBIN 11.3 g/dl (12.0-16.0); MEAN CELL VOLUME 92.5 fl (81.0-99.0); MEAN CORPUSCULAR HGB 29.4 pg (27.0-31.0); MEAN CORPUSCULAR HGB CONC 31.7 g/dl (33.0-37.0); MEAN PLATELET VOLUME 10.2 fl (9.6-12.3); NUCLEATED RED BLOOD CELL 0.2 % (0.0-0.0); PLATELET COUNT AUTOMATED 382 10*3/uL (130-400); RED BLOOD COUNT 3.85 10*6/uL (4.10-5.10)
[2017-02-24 06:05] LABS: ALBUMIN 2.7 gm/dl (3.1-4.5); ALKALINE PHOSPHATASE 93 U/L (45-117); BILIRUBIN, TOTAL 0.2 mg/dl (0.2-1.0); BUN 30 mg/dl (7-24); CARBON DIOXIDE 34 mmol/L (21-32); CHLORIDE 98 mmol/L (98-107); EST GLOM FILT AFRICAN AMERICAN > 60 ml/min; GLUCOSE 129 mg/dL (65-99); MAGNESIUM 2.2 mg/dL (1.5-2.1); POTASSIUM 5.1 mmol/L (3.5-5.1); SGOT/AST 29 IU/L (3-35); SGPT/ALT 86 U/L (12-78); SODIUM 140 mmol/L (136-145); TOTAL PROTEIN 6.1 gm/dL (6.4-8.2)
[2017-02-24 06:11] LABS: IMMUNOGLOBULIN IgE 002170 56 IU/mL (0-100)
[2017-02-24 06:50] LABS: LYMPHOCYTE # 1.2 10*3/uL (1.3-4.4); METAMYELOCYTES 4 % (0-0); MONOCYTE # 0.3 10*3/uL (0.1-1.0); MYELOCYTES 3 % (0-0); NEUTROPHIL # 10.7 10*3/uL (2.3-7.9); NEUTROPHILS 82 % (47-73); TOTAL CELLS COUNTED 100 #CELLS
[2017-02-24 06:51] LABS: PLATELET SUFFICIENCY NORMAL (NORMAL); POLYCHROMASIA SLIGHT
[2017-02-24 08:00] VITALS: BP 144/76; BP 159/47
[2017-02-24 12:00] VITALS: BP 109/67
[2017-02-24 15:07] LABS: ORGANISM ID Not indicated. (.); SPECIMEN SOURCE Urine (.); STREPTOCOCCUS PNEUMONIAE AG Negative (Negative)
[2017-02-24 16:00] VITALS: BP 140/59
[2017-02-24 20:00] VITALS: BP 147/60
[2017-02-25] VITALS: BP 147/75
[2017-02-25 04:00] VITALS: BP 135/67
[2017-02-25 05:56] LABS: HEMATOCRIT 36.6 % (37.0-47.0); HEMOGLOBIN 11.8 g/dl (12.0-16.0); MEAN CELL VOLUME 92.2 fl (81.0-99.0); MEAN CORPUSCULAR HGB 29.7 pg (27.0-31.0); MEAN CORPUSCULAR HGB CONC 32.2 g/dl (33.0-37.0); MEAN PLATELET VOLUME 10.1 fl (9.6-12.3); NUCLEATED RED BLOOD CELL 0.2 % (0.0-0.0); PLATELET COUNT AUTOMATED 391 10*3/uL (130-400); RED BLOOD COUNT 3.97 10*6/uL (4.10-5.10); RED CELL DISTRI WIDTH 15.8 % (0-14.5); WHITE BLOOD COUNT 13.1 10*3/uL (4.8-10.8)
[2017-02-25 06:07] LABS: ALBUMIN 2.9 gm/dl (3.1-4.5); ALKALINE PHOSPHATASE 88 U/L (45-117); BILIRUBIN, TOTAL 0.3 mg/dl (0.2-1.0); BUN 24 mg/dl (7-24); CARBON DIOXIDE 33 mmol/L (21-32); CHLORIDE 96 mmol/L (98-107); EST GLOM FILT AFRICAN AMERICAN > 60 ml/min; GLUCOSE 126 mg/dL (65-99); MAGNESIUM 2.1 mg/dL (1.5-2.1); POTASSIUM 4.8 mmol/L (3.5-5.1); SGOT/AST 21 IU/L (3-35); SGPT/ALT 70 U/L (12-78); SODIUM 137 mmol/L (136-145); TOTAL PROTEIN 6.4 gm/dL (6.4-8.2)
[2017-02-25 06:42] LABS: METAMYELOCYTES 2 % (0-0); MONOCYTE # 0.7 10*3/uL (0.1-1.0); MYELOCYTES 4 % (0-0); NEUTROPHIL # 10.6 10*3/uL (2.3-7.9); NEUTROPHILS 81 % (47-73); PLATELET SUFFICIENCY NORMAL (NORMAL); TOTAL CELLS COUNTED 100 #CELLS
[2017-02-25 08:00] VITALS: BP 170/86
[2017-02-25 12:00] VITALS: BP 144/84
[2017-02-25 16:00] VITALS: BP 141/72
[2017-02-25 20:00] VITALS: BP 151/65
[2017-02-26] VITALS: BP 130/55
[2017-02-26 06:38] LABS: HEMATOCRIT 39.1 % (37.0-47.0); HEMOGLOBIN 12.7 g/dl (12.0-16.0); MEAN CELL VOLUME 92.4 fl (81.0-99.0); MEAN CORPUSCULAR HGB CONC 32.5 g/dl (33.0-37.0); MEAN PLATELET VOLUME 9.6 fl (9.6-12.3); PLATELET COUNT AUTOMATED 433 10*3/uL (130-400); RED BLOOD COUNT 4.23 10*6/uL (4.10-5.10); WHITE BLOOD COUNT 12.2 10*3/uL (4.8-10.8)
[2017-02-26 07:03] LABS: ALBUMIN 3.1 gm/dl (3.1-4.5); ALKALINE PHOSPHATASE 85 U/L (45-117); BILIRUBIN, TOTAL 0.3 mg/dl (0.2-1.0); BUN 21 mg/dl (7-24); CARBON DIOXIDE 30 mmol/L (21-32); CHLORIDE 95 mmol/L (98-107); EST GLOM FILT AFRICAN AMERICAN > 60 ml/min; GLUCOSE 115 mg/dL (65-99); MAGNESIUM 2.3 mg/dL (1.5-2.1); SGOT/AST 21 IU/L (3-35); SGPT/ALT 61 U/L (12-78); SODIUM 136 mmol/L (136-145); TOTAL PROTEIN 6.6 gm/dL (6.4-8.2)
[2017-02-26 07:52] LABS: METAMYELOCYTES 2 % (0-0); MONOCYTE # 0.6 10*3/uL (0.1-1.0); MYELOCYTES 3 % (0-0); NEUTROPHILS 82 % (47-73); PLATELET SUFFICIENCY HIGH (NORMAL); TOTAL CELLS COUNTED 100 #CELLS
[2017-02-26 08:00] VITALS: BP 151/75
[2017-02-26] MEDS ORDERED: ALDACTONE25 MG PO (10:29)
[2017-02-26] MEDS ORDERED: LANOXIN250 MCG PO (10:29)
[2017-02-26] MEDS ORDERED: LOSARTAN POTASS25 M1 PO (10:29)
[2017-02-26] MEDS ORDERED: TOPROL XL50 M1 PO ×2 (10:29→14:32)
[2017-02-26] MEDS ORDERED: PREDNISONE50 MG PO (10:29)
[2017-02-26] MEDS ORDERED: LEVAQUIN750 M1 PO (10:32)
[2017-02-26 12:00] VITALS: BP 155/52
[2017-02-26 13:06] LABS: ASPERGILLUS FUMIGATU, IGE <0.10 kU/L (Class 0)
== END 2017-02-26 18:04 | disposition home or self-care (01) | DRG 853 ==
LOC: ED 11:25 → 4E 14:11 → ICCU 14:11 → EDHOLD 14:11 → 4E 14:36 → ICCU 02-21 15:10 → 5E 02-25 15:03
PROVIDERS: Emergency Medicine; Family Medicine; Internal Medicine; Internal Medicine Critical Care Medicine; Internal Medicine Hospice and Palliative Medicine
DX: A41.9 Sepsis, unspecified organism (principal); N17.0 Acute kidney failure with tubular necrosis; J96.01 Acute respiratory failure with hypoxia; I50.21 Acute systolic (congestive) heart failure; E43 Unspecified severe protein-calorie malnutrition; J18.9 Pneumonia, unspecified organism; I42.0 Dilated cardiomyopathy; J44.1 Chronic obstructive pulmonary disease with (acute) exacerbation; N39.0 Urinary tract infection, site not specified; J44.0 Chronic obstructive pulmonary disease with (acute) lower respiratory infection; R65.20 Severe sepsis without septic shock; I08.1 Rheumatic disorders of both mitral and tricuspid valves; E87.6 Hypokalemia; R59.1 Generalized enlarged lymph nodes; R82.71 Bacteriuria; B96.20 Unspecified Escherichia coli [E. coli] as the cause of diseases classified elsewhere; Z71.6 Tobacco abuse counseling; Z83.3 Family history of diabetes mellitus; Z68.20 Body mass index [BMI] 20.0-20.9, adult; Z82.3 Family history of stroke; Z84.89 Family history of other specified conditions; Z82.49 Family history of ischemic heart disease and other diseases of the circulatory system; Z88.0 Allergy status to penicillin; Z88.6 Allergy status to analgesic agent; Z79.899 Other long term (current) drug therapy

== ENCOUNTER → 2017-04-03 | Outpatient (CLI) | payer OTHER ==
[~2017-04-03] MED LIST: ALDACTONE25 MG PO; LANOXIN250 MCG PO; LEVAQUIN750 M1 PO; LOSARTAN POTASS25 M1 PO; MULTIPLE VITAMI1 TA3 PO; PREDNISONE50 MG PO; TOPROL XL50 M1 PO; VITAMIN D5000 I3 PO
== END | disposition home or self-care (01) ==
LOC: CARD 14:13
DX: I50.20 Unspecified systolic (congestive) heart failure (principal); I42.9 Cardiomyopathy, unspecified; J44.9 Chronic obstructive pulmonary disease, unspecified

== ENCOUNTER → 2017-05-08 | Outpatient (CLI) | payer OTHER | END | disposition home or self-care (01) | LOC: CT 16:21 | DX: J44.9 Chronic obstructive pulmonary disease, unspecified (principal); J98.11 Atelectasis; N20.0 Calculus of kidney; N13.30 Unspecified hydronephrosis; I70.0 Atherosclerosis of aorta; F17.200 Nicotine dependence, unspecified, uncomplicated; Z87.01 Personal history of pneumonia (recurrent) ==

== ENCOUNTER → 2018-05-01 | Outpatient (CLI) | payer OTHER | END | disposition home or self-care (01) | LOC: MAMMO 13:19 | DX: Z12.31 Encounter for screening mammogram for malignant neoplasm of breast (principal); J44.9 Chronic obstructive pulmonary disease, unspecified; I10 Essential (primary) hypertension; R74.8 Abnormal levels of other serum enzymes; F41.9 Anxiety disorder, unspecified; E78.5 Hyperlipidemia, unspecified ==

== ENCOUNTER → 2018-08-14 | Outpatient (CLI) | payer OTHER ==
[2018-08-15 17:38] LABS: ALPHA-1-ANTITRYPSIN, SERUM 201 mg/dL (90-200)
== END | disposition home or self-care (01) ==
LOC: LAB 08:01 → CT 09:00
PROVIDERS: Internal Medicine Critical Care Medicine
DX: J43.9 Emphysema, unspecified (principal)

== ENCOUNTER → 2019-08-29 | Outpatient (CLI) | payer OTHER | END | disposition home or self-care (01) | LOC: CT 10:04 | DX: J43.8 Other emphysema (principal); F17.200 Nicotine dependence, unspecified, uncomplicated ==

== ENCOUNTER → 2020-08-24 | Outpatient (CLI) | payer OTHER | END | disposition home or self-care (01) | LOC: RAD 11:47 | PROVIDERS: ATTEND Nurse Practitioner Family | DX: M25.572 Pain in left ankle and joints of left foot (principal); M79.672 Pain in left foot; M79.676 Pain in unspecified toe(s); M79.671 Pain in right foot ==

== ENCOUNTER → 2020-08-25 | Outpatient (CLI) | payer OTHER | END | disposition home or self-care (01) | LOC: US 11:30 | PROVIDERS: ATTEND Nurse Practitioner Family | DX: M25.572 Pain in left ankle and joints of left foot (principal); M79.672 Pain in left foot; L89.522 Pressure ulcer of left ankle, stage 2; L03.116 Cellulitis of left lower limb ==

== ENCOUNTER → 2020-12-21 | Outpatient (CLI) | payer OTHER ==
[~2020-12-21] MED LIST changes: +BEVESPI AEROS10.7 GM INH; +COZAAR50 M1 PO; +FLONASE ALLERG9.9 ML NAS; +HYDROXYZINE HCL25 MG PO; +LIPITOR80 MG PO; +NICODERM CQ1 EAC2 T; +PROAIR HFA8.5 GM INH; +ZYRTEC10 M3 PO
== END | disposition home or self-care (01) ==
LOC: CARD 00:14
PROVIDERS: ATTEND Internal Medicine Cardiovascular Disease
DX: Z01.810 Encounter for preprocedural cardiovascular examination (principal); I73.9 Peripheral vascular disease, unspecified; R06.02 Shortness of breath; R53.81 Other malaise

== ENCOUNTER → 2020-12-28 | Outpatient (CLI) | payer OTHER | END | disposition home or self-care (01) | LOC: RAD 15:59 | PROVIDERS: ATTEND Nurse Practitioner Family | DX: J43.9 Emphysema, unspecified (principal); I73.9 Peripheral vascular disease, unspecified; I10 Essential (primary) hypertension; E78.5 Hyperlipidemia, unspecified; F17.210 Nicotine dependence, cigarettes, uncomplicated ==

== ENCOUNTER → 2022-07-31 | Outpatient (CLI) | payer OTHER ==
[2022-07-31 10:43] LABS: BASO % 0.4 % (0.0-1.0); EOS # 0.1 10*3/uL (0.0-0.4); EOS % 1.9 % (1.0-4.0); HEMATOCRIT 41.9 % (37.0-47.0); LYMPH # 1.3 10*3/uL (1.3-4.4); LYMPH % 17.1 % (27.0-41.0); MEAN CELL VOLUME 93.1 fl (81.0-99.0); MEAN CORPUSCULAR HGB 31.1 pg (27.0-31.0); MEAN CORPUSCULAR HGB CONC 33.4 g/dl (33.0-37.0); MEAN PLATELET VOLUME 10.2 fl (9.6-12.3); MONO # 0.6 10*3/uL (0.1-1.0); MONO % 7.7 % (3.0-9.0); NEUT # 5.4 10*3/uL (2.3-7.9); NEUT % 72.6 % (47.0-73.0); PLATELET COUNT AUTOMATED 236 10*3/uL (130-400); RED CELL DISTRI WIDTH 13.5 % (0-14.5); WHITE BLOOD COUNT 7.4 10*3/uL (4.8-10.8)
[2022-07-31 10:59] LABS: ALKALINE PHOSPHATASE 120 U/L (45-117); BUN 13 mg/dl (7-24); CHLORIDE 107 mmol/L (98-107); CHOLESTEROL 215 mg/dL (<200); CREATININE 1.02 mg/dL (0.55-1.02); LDL CHOLESTEROL 113 mg/dL (9-159); POTASSIUM 3.8 mmol/L (3.5-5.1); SGOT/AST 22 IU/L (3-35); SGPT/ALT 34 U/L (12-78); SODIUM 142 mmol/L (136-145); TOTAL PROTEIN 7.5 gm/dL (6.4-8.2); TRIGLYCERIDES 148 mg/dl (<150)
== END ==
LOC: LAB 10:19
PROVIDERS: ATTEND Nurse Practitioner Family
DX: E78.5 Hyperlipidemia, unspecified (principal); I10 Essential (primary) hypertension; J44.9 Chronic obstructive pulmonary disease, unspecified; F17.210 Nicotine dependence, cigarettes, uncomplicated; I73.9 Peripheral vascular disease, unspecified

== ENCOUNTER 2022-09-19 12:53 | Emergency (ER) | payer OTHER ==
[~2022-09-19] VITALS: Wt 31.8 kg
[2022-09-19 14:38] LABS: BASO % 0.2 % (0.0-1.0); EOS # 0.1 10*3/uL (0.0-0.4); EOS % 0.6 % (1.0-4.0); HEMATOCRIT 47.4 % (37.0-47.0); LYMPH # 1.7 10*3/uL (1.3-4.4); LYMPH % 15.3 % (27.0-41.0); MEAN CELL VOLUME 89.3 fl (81.0-99.0); MEAN CORPUSCULAR HGB 30.5 pg (27.0-31.0); MEAN CORPUSCULAR HGB CONC 34.2 g/dl (33.0-37.0); MEAN PLATELET VOLUME 10.1 fl (9.6-12.3); MONO # 0.8 10*3/uL (0.1-1.0); MONO % 7.3 % (3.0-9.0); NEUT # 8.4 10*3/uL (2.3-7.9); NEUT % 76.3 % (47.0-73.0); PLATELET COUNT AUTOMATED 287 10*3/uL (130-400); RED BLOOD COUNT 5.31 10*6/uL (4.10-5.10); RED CELL DISTRI WIDTH 13.1 % (0-14.5)
[2022-09-19 14:55] LABS: ALKALINE PHOSPHATASE 135 U/L (46-116); BUN 14 mg/dl (9-23); CHLORIDE 91 mmol/L (98-107); CREATININE 1.06 mg/dL (0.55-1.02); POTASSIUM 3.4 mmol/L (3.4-5.1); SGPT/ALT 30 U/L (10-49); SODIUM 130 mmol/L (136-145); TOTAL PROTEIN 8.2 gm/dL (6.0-8.0)
[2022-09-19 19:22] LABS: CHLORIDE 98 mmol/L (98-107); SODIUM 132 mmol/L (136-145)
[2022-09-19 19:28] LABS: BUN 11 mg/dl (9-23); CREATININE 0.91 mg/dL (0.55-1.02)
[2022-09-19] MEDS ORDERED: PREDNISONE20 M1 PO (20:32)
== END 2022-09-19 20:49 | disposition home or self-care (01) ==
LOC: ED 12:53
PROVIDERS: Physician Assistant
DX: J40 Bronchitis, not specified as acute or chronic (principal); E86.0 Dehydration; Z88.0 Allergy status to penicillin; Z88.6 Allergy status to analgesic agent; Z79.899 Other long term (current) drug therapy

== ENCOUNTER → 2022-11-20 | Outpatient (CLI) | payer OTHER ==
[~2022-11-20] MED LIST changes: +PREDNISONE20 M1 PO
== END | disposition home or self-care (01) ==
LOC: RAD 11:05
PROVIDERS: ATTEND Nurse Practitioner Family
DX: J43.8 Other emphysema (principal); F17.210 Nicotine dependence, cigarettes, uncomplicated; F41.9 Anxiety disorder, unspecified; I10 Essential (primary) hypertension; R63.4 Abnormal weight loss

== ENCOUNTER → 2022-11-28 | Outpatient (CLI) | payer OTHER | END | disposition home or self-care (01) | LOC: CT 11-22 13:00 | PROVIDERS: ATTEND Nurse Practitioner Family | DX: J43.9 Emphysema, unspecified (principal); J98.11 Atelectasis; R91.1 Solitary pulmonary nodule; R63.4 Abnormal weight loss; F17.210 Nicotine dependence, cigarettes, uncomplicated; I73.9 Peripheral vascular disease, unspecified; F41.9 Anxiety disorder, unspecified ==

== ENCOUNTER → 2022-12-13 | Outpatient (CLI) | payer OTHER | END | disposition home or self-care (01) | LOC: US 02:02 | PROVIDERS: ATTEND Nurse Practitioner Family | DX: N13.2 Hydronephrosis with renal and ureteral calculous obstruction (principal); R93.89 Abnormal findings on diagnostic imaging of other specified body structures ==

== ENCOUNTER → 2023-05-30 | Outpatient (CLI) | payer OTHER ==
[2023-05-30 15:11] LABS: BASO % 0.4 % (0.0-1.0); EOS # 0.3 10*3/uL (0.0-0.4); EOS % 3.6 % (1.0-4.0); HEMATOCRIT 40.4 % (37.0-47.0); LYMPH # 1.3 10*3/uL (1.3-4.4); LYMPH % 19.2 % (27.0-41.0); MEAN CELL VOLUME 94.6 fl (81.0-99.0); MEAN CORPUSCULAR HGB 30.7 pg (27.0-31.0); MEAN CORPUSCULAR HGB CONC 32.4 g/dl (33.0-37.0); MEAN PLATELET VOLUME 9.4 fl (9.6-12.3); MONO # 0.5 10*3/uL (0.1-1.0); MONO % 7.6 % (3.0-9.0); NEUT # 4.8 10*3/uL (2.3-7.9); NEUT % 69.1 % (47.0-73.0); PLATELET COUNT AUTOMATED 205 10*3/uL (130-400); RED BLOOD COUNT 4.27 10*6/uL (4.10-5.10); RED CELL DISTRI WIDTH 14.1 % (0-14.5); WHITE BLOOD COUNT 6.9 10*3/uL (4.8-10.8)
[2023-05-30 15:36] LABS: ALKALINE PHOSPHATASE 127 U/L (46-116); BUN 10 mg/dl (9-23); CHLORIDE 104 mmol/L (98-107); GAMMA GLUTAMYL TRANSPEPTIDASE 26 U/L (0-73); SGPT/ALT 48 U/L (10-49); TOTAL PROTEIN 7.4 gm/dL (6.0-8.0)
== END | disposition home or self-care (01) ==
LOC: LAB 14:54
PROVIDERS: ATTEND Nurse Practitioner Primary Care
DX: I10 Essential (primary) hypertension (principal); R74.8 Abnormal levels of other serum enzymes; R63.6 Underweight

== ENCOUNTER → 2024-02-18 | Outpatient (CLI) | payer OTHER | END | disposition home or self-care (01) | LOC: MAMMO 01:15 | PROVIDERS: ATTEND Nurse Practitioner Primary Care | DX: Z12.31 Encounter for screening mammogram for malignant neoplasm of breast (principal); I25.10 Atherosclerotic heart disease of native coronary artery without angina pectoris; J43.9 Emphysema, unspecified; R91.8 Other nonspecific abnormal finding of lung field; J98.11 Atelectasis; Z13.820 Encounter for screening for osteoporosis; E55.9 Vitamin D deficiency, unspecified; M81.0 Age-related osteoporosis without current pathological fracture; F17.210 Nicotine dependence, cigarettes, uncomplicated ==

== ENCOUNTER → 2024-05-19 | Outpatient (CLI) | payer OTHER ==
[2024-05-19 10:54] LABS: BASO % 0.7 % (0.0-1.0); EOS # 0.4 10*3/uL (0.0-0.4); EOS % 6.4 % (1.0-4.0); HEMATOCRIT 43.9 % (37.0-47.0); LYMPH # 1.5 10*3/uL (1.3-4.4); LYMPH % 26.5 % (27.0-41.0); MEAN CELL VOLUME 88.7 fl (81.0-99.0); MEAN CORPUSCULAR HGB 29.3 pg (27.0-31.0); MEAN PLATELET VOLUME 9.6 fl (9.6-12.3); MONO # 0.4 10*3/uL (0.1-1.0); MONO % 7.1 % (3.0-9.0); NEUT # 3.4 10*3/uL (2.3-7.9); NEUT % 59.1 % (47.0-73.0); PLATELET COUNT AUTOMATED 180 10*3/uL (130-400); RED BLOOD COUNT 4.95 10*6/uL (4.10-5.10); RED CELL DISTRI WIDTH 14.1 % (0-14.5); WHITE BLOOD COUNT 5.8 10*3/uL (4.8-10.8)
[2024-05-19 11:34] LABS: VITAMIN D, 25-HYDROXY 87.2 ng/mL (30-100)
[2024-05-19 11:35] LABS: ALKALINE PHOSPHATASE 127 U/L (46-116); BUN 17 mg/dl (9-23); CHLORIDE 103 mmol/L (98-107); CHOLESTEROL 171 mg/dL (<200); LDL CHOLESTEROL 69 mg/dL (9-159); POTASSIUM 4.1 mmol/L (3.4-5.1); SGPT/ALT 36 U/L (5-49); TOTAL PROTEIN 7.5 gm/dL (6.0-8.0); TRIGLYCERIDES 107 mg/dl (<150)
== END | disposition home or self-care (01) ==
LOC: LAB 01:09 → CT 11:00 → LAB 11:00
PROVIDERS: ATTEND Nurse Practitioner Primary Care
DX: Z12.11 Encounter for screening for malignant neoplasm of colon (principal); J18.9 Pneumonia, unspecified organism; I10 Essential (primary) hypertension; E55.9 Vitamin D deficiency, unspecified; J98.4 Other disorders of lung; R91.8 Other nonspecific abnormal finding of lung field

== ENCOUNTER → 2025-02-02 | Outpatient (CLI) | payer OTHER ==
[2025-02-02 13:21] LABS: BASO # 0.1 10*3/uL (0.0-0.1); BASO % 0.9 % (0.0-1.0); EOS # 0.5 10*3/uL (0.0-0.4); EOS % 9.2 % (1.0-4.0); MEAN CELL VOLUME 89.7 fl (81.0-99.0); MEAN CORPUSCULAR HGB 29.2 pg (27.0-31.0); MEAN CORPUSCULAR HGB CONC 32.6 g/dl (33.0-37.0); MEAN PLATELET VOLUME 9.7 fl (9.6-12.3); MONO # 0.4 10*3/uL (0.1-1.0); MONO % 7.9 % (3.0-9.0); NEUT # 2.7 10*3/uL (2.3-7.9); NEUT % 50.3 % (47.0-73.0); PLATELET COUNT AUTOMATED 219 10*3/uL (130-400); RED BLOOD COUNT 5.24 10*6/uL (4.10-5.10); RED CELL DISTRI WIDTH 14.1 % (0-14.5); WHITE BLOOD COUNT 5.3 10*3/uL (4.8-10.8)
[2025-02-02 13:52] LABS: ALKALINE PHOSPHATASE 126 U/L (46-116); BUN 13 mg/dl (9-23); CHLORIDE 104 mmol/L (98-107); CHOLESTEROL 145 mg/dL (<200); LDL CHOLESTEROL 58 mg/dL (9-159); POTASSIUM 3.8 mmol/L (3.4-5.1); SGPT/ALT 30 U/L (5-49); TOTAL PROTEIN 7.5 gm/dL (6.0-8.0); TRIGLYCERIDES 105 mg/dl (<150)
== END | disposition home or self-care (01) ==
LOC: LAB 13:00
PROVIDERS: ATTEND Nurse Practitioner Primary Care
DX: N28.9 Disorder of kidney and ureter, unspecified (principal); M81.0 Age-related osteoporosis without current pathological fracture; E78.5 Hyperlipidemia, unspecified

== ENCOUNTER → 2025-02-23 | Outpatient (CLI) | payer OTHER | END | disposition home or self-care (01) | LOC: MAMMO 09:37 | PROVIDERS: ATTEND Nurse Practitioner Primary Care | DX: Z12.31 Encounter for screening mammogram for malignant neoplasm of breast (principal); F17.210 Nicotine dependence, cigarettes, uncomplicated ==

== ENCOUNTER 2025-07-09 16:16 | Emergency (ER) | payer OTHER ==
[~2025-07-09] VITALS: Ht 152.4 cm; Wt 26.8 kg
[2025-07-09 18:25] LABS: BASO # 0.1 10*3/uL (0.0-0.1); BASO % 0.8 % (0.0-1.0); EOS # 0.3 10*3/uL (0.0-0.4); EOS % 4.0 % (1.0-4.0); MEAN CELL VOLUME 90.8 fl (81.0-99.0); MEAN CORPUSCULAR HGB 29.2 pg (27.0-31.0); MEAN PLATELET VOLUME 10.0 fl (9.6-12.3); MONO # 0.7 10*3/uL (0.1-1.0); MONO % 7.8 % (3.0-9.0); NEUT # 4.9 10*3/uL (2.3-7.9); NEUT % 58.5 % (47.0-73.0); NUCLEATED RED BLOOD CELL 0.0 % (0.0-0.0); NUCLEATED RED BLOOD CELL 0.0 10*3/uL (0.0-0.0); PLATELET COUNT AUTOMATED 244 10*3/uL (130-400); RED CELL DISTRI WIDTH 13.0 % (0-14.5)
[2025-07-09 18:45] LABS: BUN 12 mg/dl (9-23); SGPT/ALT 21 U/L (5-49)
[2025-07-09] MEDS ORDERED: Albuterol Sulf/Ipratropium 3 ML VIAL NEB ONE (19:40)
[2025-07-09] MEDS ORDERED: VIBRAMYCIN100 MG PO (20:12)
== END 2025-07-09 20:23 | disposition home or self-care (01) ==
LOC: ED 16:16
PROVIDERS: Emergency Medicine
DX: J44.89 Other specified chronic obstructive pulmonary disease (principal)